=== PATIENT | female | born 1965 | race Caucasian/White ===

== ENCOUNTER 2016-10-31 16:52 | Inpatient (IN) ==
[2016-10-31 17:41] LABS: BASO% 0.3 % (0.0-0.8); EOS# 9.11 X1000 (0.0-0.7); HEMATOCRIT 42.2 % (37.0-47.0); HEMOGLOBIN 14.8 g/dL (12.0-16.0); IMM GRAN# 0.04 X1000 (0.0-0.04); IMM GRAN% 0.2 % (0.0-0.5); LYMPH# 3.03 X1000 (1.2-3.4); LYMPH% 15.3 % (20.5-51.1); MANUAL DIFF NEEDED? YES; MCH 30.3 PG (27-31); MCHC 35.1 g/dL (33-37); MCV 86.5 FL (81-99); MONO# 0.72 X1000 (0.11-0.59); MONO% 3.6 % (1.7-9.3); MPV 9.9 FL (7.4-10.4); NEUT% 34.6 % (42.2-75.2); PLT 255 X1000 (130-400); RBC 4.88 XMIL (4.2-5.4)
[2016-10-31 17:49] LABS: AGAP 11; ALKALINE PHOSPHATASE 110 U/L (32-104); AMYLASE 33 U/L (20-200); BUN 14 mg/dL (8-22); CALCIUM 9.1 mg/dL (8.8-10.2); CHLORIDE 101 mmol/L (98-107); COSMO 275; GOT 19 U/L (10-30); GPT 17 U/L (10-36); LIPASE 29 U/L (13-60); POTASSIUM 3.7 mmol/L (3.5-5.1); SODIUM 136 mmol/L (136-145); TCO2 24 mmol/L (25-35); TOTAL PROTEIN 6.8 g/dL (6.3-8.3)
[2016-10-31 17:56] LABS: BASO 1 % (0-1); EOS 49 % (1-10); LYMPHS 10 % (21-51); MONO 5 % (1-9)
[2016-10-31] MEDS ORDERED: NS 1,000 ML IV ONE ×2 (18:36→21:28)
[2016-10-31] MEDS ORDERED: ZOFRAN IV ONE (19:00)
[2016-10-31] MEDS ORDERED: DILAUDID IV ONE (19:01)
--- NOTE | 2016-10-31 19:04 | PROVIDER DOCUMENTATION ---
HPI-Abdominal Pain/GI Problem - General Chief Complaint: Abdominal Pain Stated Complaint: ABD PAIN Time Seen by Provider: 10/31/16 18:35 Source: patient, family Allergies/Adverse Reactions: Patient Allergies Allergy/AdvReac Type Severity Reaction Status Date / Time diphenhydramine HCl * Allergy ITCHING Verified 12/09/14 22:27 [From Benadryl] latex Allergy Unknown Verified 12/09/14 22:27 povidone-iodine Allergy Unknown Verified 12/09/14 22:27 [From Betadine] soap * [From Betadine] Allergy Unknown Verified 12/09/14 22:27 Sulfa (Sulfonamide Allergy SHORTNESS Verified 12/09/14 22:27 Antibiotics) OF BREATH Home Medications: Home Medication List Medication Instructions Recorded Confirmed Last Taken Type Cephalexin [Keflex] 500 mg PO Q6HR #28 capsule 12/22/14 Unknown Rx Tramadol [Ultram] 50 mg PO Q6H PRN PRN #30 tablet 12/22/14 Unknown Rx - History of Present Illness-ABD Nature of Presenting Problems: 50 year old WF presents with family. pt reports a 10 day history of diarrhea with abdominal distention for 10 days. Pt reports she was evaluated in the ED at [facility], placed in [facility] 7 days ago. The symptoms persisted, pt reports she was evaluated by her PMD 3 days ago and started on Flagyl. she reports the abdominal pain has become so severe she sought care again today. Pt reports over the last 2 days, she has developed nausea with vomiting, and has not had much to eat/drink. Pt denies blood in stool/emesis. Pt denies exposure to c-diff , recent abx use, recent visit to hospital prior to her own last week. Pt denies travel out of country, exposure to anybody with these symptoms. Pt reports she is dizzy, lightheaded with walking, standing and feels generally weak. Pt reports the abdominal pain is intermittent, sharp and feels like a "twisting" sensation. Abdominal Pain Onset Location: reports: generalized abdomen Pain Radiation: reports: no radiation Quality of Pain: reports: sharp, stabbing, other (twisting) Severity in ED: reports: mild, moderate Onset/Duration: reports: other (10 days ago) Timing: reports: still present, constant, getting worse Activities at Onset: reports: none Exposure to sick contacts?: No Modifying Factors: improves with: nothing. worse with: analgesics, antacids, breathing, cold/heat therapy, coughing, defecating, eating, exercise, immobilization, lying down, massage, movement, other medication, palpation, rest , urinating, vomiting Associated Symptoms: reports: diarrhea, dizziness, fatigue, loss of appetite, malaise, swelling/mass in abdomen, vomiting, weakness. denies: fever/chills, genitourinary problems, nausea, rash, seizure, shortness of breath, sensory/ motor loss, syncope, trouble walking Last BM: this evening Dark Stools Present?: reports: none noticed. denies: maroon, black, tarry, bright red blood Rectal Bleeding: reports: none. denies: bleeding without stool, bright red blood on paper, blood mixed with stool, blood streaks on stool, bloody diarrhea # of Diarrhea Episodes: 6 (in last 24 hours) Rectal Pain: reports: none. denies: known anal fissure(s), known hemorrhoids, fistula, abscess # of Vomiting Episodes: 2 (in last 24 hours) Emesis Description: reports: none, clear Bruising or Bleeding Gums?: No Similar Symptoms Previously?: No Recently seen or treated by another doctor?: Yes Review of Systems - Adult - REVIEW OF SYSTEMS - ADULT Constitutional: reports: see HPI, jenni. denies: chills, fever, weight gain, weight loss Eyes: reports: no symptoms reported. denies: discharge, blurred vision, double vision Ears, Nose, Mouth & Throat: reports: no symptoms reported. denies: ear discharge, ear pain, nose pain, loose teeth, throat pain, throat swelling Cardiovascular: reports: no symptoms reported. denies: chest pain, palpitations , syncope Respiratory: reports: no symptoms reported. denies: chronic cough, cough, shortness of breath, wheezing Gastrointestinal: reports: see HPI, abdominal pain, diarrhea, nausea, poor appetite, vomiting. denies: hematemesis, constipation, difficulty swallowing, frequent heartburn, rectal bleeding Genitourinary: reports: no symptoms reported. denies: dysuria, hematuria, urgency Musculoskeletal: reports: no symptoms reported. denies: bone pain, joint pain, joint swelling, neck pain Integumentary: reports: no symptoms reported. denies: hives, itching, rash, skin sores/ulcer Neurological: reports: see HPI. denies: ataxia, dizziness/vertigo, headache/ migraines, loss of balance, numbness, paresthesia, seizure, slurred speech, syncope, tremors Psychiatric: reports: no symptoms reported Endocrine: reports: no symptoms reported Hematologic/Lymphatic: reports: no symptoms reported Allergic/Immunologic: reports: no symptoms reported All Other Systems: Reviewed and Negative Past History - Adult - PAST MEDICAL HISTORY-ADULT Review of Records: reports: Old Records Reviewed, Nursing Assessment Review, Medications Reviewed, Social history reviewed & non-contributory. Major Childhood Illnesses: reports: denies history Cardiovascular: reports: denies history Respiratory: reports: denies history Gastrointestinal: reports: denies history Obstetrical/Gynecological: reports: denies history Genitourinary: reports: denies history Musculoskeletal: reports: denies history Neurological: reports: Multiple Sclerosis Endocrine/Immune: reports: thyroid disorder (during ) Other Conditions: reports: denies history - PRIOR SURGERIES/PROCEDURES Surgical/Procedure History: reports: cholecystectomy, hysterectomy, other ( wisdom teeth) - IMMUNIZATION STATUS Childhood Immunizations: See Nurse Assessment Flu Vaccine: See Nurse Assessment - FAMILY HISTORY Family History: reviewed, not pertinent - SOCIAL HISTORY Smoking: denies, non-smoker Substance Use: none/never Alcohol Use Frequency: never Physical Exam-General - PHYSICAL EXAM-ADULT Initial Vital Signs Reviewed: Yes - CONSTITUTIONAL General Appearance: appears well, alert, mild distress, moderate distress. negative: no apparent distress, severe distress, lethargic, slow to respond, obtunded, combative - EYES Eyes: pink conjunctivae. negative: conjuctival exudate, pale conjunctivae, sclera injected, scleral icterus, subconjunctival hemorrhage - HEAD, EARS, NOSE, MOUTH & THROAT HENMT: normocephalic/atraumatic, normal ENT inspection, TMs normal, pharynx normal. negative: moist mucous membranes (lips dry, tachy, stick mucous membranes), pharyngeal erythema, tonsillar exudate, TM abnormal, TM obscurred by cerumen, frontal tenderness, maxillary tenderness - NECK Neck: non-tender, full range of motion, supple, normal inspection. negative: C- spine tenderness, limited range of motion, tender lateral, tender midline - RESPIRATORY Respiratory: chest non-tender, lungs clear, normal breath sounds, no pleuratic chest pain, no respiratory distress, no accessory muscle use. negative: respiratory distress, decreased breath sounds, accessory muscle use, crackles, rales, rhonchi, stridor, wheezing - CARDIOVASCULAR Cardiovascular: normal peripheral pulses, regular rate, rhythm, no edema, no gallop, no JVD, no murmur. negative: bradycardia, tachycardia - CHEST (BREASTS) Chest/Breast: deferred - GASTROINTESTINAL (ABDOMEN) Abdominal Exam: normal bowel sounds, soft, no organomegaly, no pulsatile mass, abnormal bowel sounds (hyperactive BS), distended, tenderness (diffuse, non focal). negative: non tender, guarding, rigid, rebound, McBurney's point tenderness, Grijalva's sign, obturator sign, psoas, Rovsing's sign - LYMPHATIC Lymphatic: no adenopathy. negative: cervical node tenderness - MUSCULOSKELETAL Back Exam: normal inspection, no CVA tenderness, no vertebral tenderness. negative: CVA tenderness, decreased range of motion, swelling, vertebral tenderness Extremity: normal range of motion, non-tender, normal gait, normal inspection, no pedal edema, no calf tenderness, normal capillary refill, pelvis stable. negative: deformity, erythema, inflammation, joint effusion, slow capillary refill, swelling, tenderness Peripheral Pulses: radial (R): 3+, radial (L): 3+, dorsalis-pedis (R): 3+, dorsalis-pedis (L): 3+ - SKIN Integumentary: normal color, normal turgor, warm/dry. negative: jaundice, pallor, petechiae, purpura, rash, swelling, tenderness - NEUROLOGIC Neurologic: grossly normal, no motor/sensory deficits - PSYCHIATRIC Psych/Mental Status: normal mood/affect, normal thought content, normal thought process, oriented x 3 Progress - PLAN OF CARE/RESULTS Progress/Plan/Lab Results: Vital Signs - 8 hr 10/31/16 17:00 Temperature 98 F Pulse Rate 69 Respiratory Rate 18 Blood Pressure 161/82 O2 Sat by Pulse Oximetry 98 Laboratory Results - last 24 hr 10/31/16 10/31/16 17:20 17:20 WBC 19.81 H RBC 4.88 Hgb 14.8 Hct 42.2 MCV 86.5 MCH 30.3 MCHC 35.1 RDW Std Deviation 12.2 Plt Count 255 MPV 9.9 Immature Gran % (Auto) 0.2 Neut % (Auto) 34.6 L Lymph % (Auto) 15.3 L Giles % (Auto) 3.6 Eos % (Auto) 46.0 H Baso % (Auto) 0.3 Immature Gran # (Auto) 0.04 Neut # (Auto) 6.85 H Lymph # (Auto) 3.03 Giles # (Auto) 0.72 H Eos # (Auto) 9.11 H Baso # (Auto) 0.06 Segmented Neutrophils 35 L Lymphocytes 10 L Monocytes 5 Eosinophils 49 H Basophils 1 Pathologist Review Sodium 136 Potassium 3.7 Chloride 101 Carbon Dioxide 24 L Anion Gap 11 BUN 14 Creatinine 0.8 Estimated GFR/1.73 m2 > 60 BUN/Creatinine Ratio 18 Glucose 140 H Calculated Osmolality 275 Calcium 9.1 Total Bilirubin 0.20 AST 19 ALT 17 Alkaline Phosphatase 110 H Total Protein 6.8 Albumin 4.0 Globulin 3.0 Albumin/Globulin Ratio 1.0 Amylase 33 Lipase 29 Orders Category Date Time Status Orthostatic Vital Signs NOW Care 10/31/16 18:35 Active Saline Loc DIRECTED Care 10/31/16 17:10 Active NPO Diet 10/31/16 17:[address] ABD/PELVIS W/ IV CONT ONLY [CT] Stat Exams 10/31/16 19:02 Ordered AMYLASE [CHEM] Stat Lab 10/31/16 17:20 Completed C DIFF TOXIN PL Stat Lab 10/31/16 18:36 Ordered CBC WITH ELECTRONIC DIFF [HEME] Stat Lab 10/31/16 17:20 Completed COMPREHENSIVE METABOLIC PANEL [CHEM] Stat Lab 10/31/16 17:20 Completed LIPASE [CHEM] Stat Lab 10/31/16 17:20 Completed OCCULT BLOOD SCREEN STOOL PL Stat Lab 10/31/16 18:[address] W/POSS RFLX CULT [URINALYSIS] Stat Lab 10/31/16 18:40 Received WBC STOOL [STOOL] Stat Lab 10/31/16 18:36 Uncollected 0.9% Sodium Chloride Inj [Ns] 1,000 ml Med 10/31/16 18:36 Active IV 999 mls/hr Hydromorphone [Dilaudid] Med 10/31/16 19:01 Once 1 mg IV NOW ONE Ondansetron [Zofran] Med 10/31/16 19:00 Once 4 mg IV NOW ONE Vital Signs - 24 hr 10/31/16 17:00 Temperature 98 F Pulse Rate 69 Respiratory Rate 18 Blood Pressure 161/82 O2 Sat by Pulse Oximetry 98 Reviewed radiology, labs with Dr. Leger, agrees with plan of care and treatment/ admission. Laboratory Tests 10/31/16 10/31/16 10/31/16 17:20 17:20 18:40 WBC 19.81 H RBC 4.88 Hgb 14.8 Hct 42.2 MCV 86.5 MCH 30.3 MCHC 35.1 RDW Std Deviation 12.2 Plt Count 255 MPV 9.9 Immature Gran % (Auto) 0.2 Neut % (Auto) 34.6 L Lymph % (Auto) 15.3 L Giles % (Auto) 3.6 Eos % (Auto) 46.0 H Baso % (Auto) 0.3 Immature Gran # (Auto) 0.04 Neut # (Auto) 6.85 H Lymph # (Auto) 3.03 Giles # (Auto) 0.72 H Eos # (Auto) 9.11 H Baso # (Auto) 0.06 Segmented Neutrophils 35 L Lymphocytes 10 L Monocytes 5 Eosinophils 49 H Basophils 1 Pathologist Review Sodium 136 Potassium 3.7 Chloride 101 Carbon Dioxide 24 L Anion Gap 11 BUN 14 Creatinine 0.8 Estimated GFR/1.73 m2 > 60 BUN/Creatinine Ratio 18 Glucose 140 H Calculated Osmolality 275 Calcium 9.1 Total Bilirubin 0.20 AST 19 ALT 17 Alkaline Phosphatase 110 H Total Protein 6.8 Albumin 4.0 Globulin 3.0 Albumin/Globulin Ratio 1.0 Amylase 33 Lipase 29 Urine Source CLEAN CATCH Urine Color YELLOW Urine Clarity CLEAR Urine pH 5.0 Ur Specific [place] 1.020 Urine Protein NEGATIVE Urine Ketones NEGATIVE Urine Blood NEGATIVE Urine Nitrite NEGATIVE Urine Bilirubin NEGATIVE Urine Urobilinogen NORMAL Urine Microscopic RBC <10 Urine WBC TRACE A Urine Microscopic WBC <10 Ur Epithelial Cells <10 Urine Bacteria NEGATIVE Urine Glucose NEGATIVE Stool Occult Blood Stool C.difficile Toxin 10/31/16 10/31/16 18:40 19:00 WBC RBC Hgb Hct MCV MCH MCHC RDW Std Deviation Plt Count MPV Immature Gran % (Auto) Neut % (Auto) Lymph % (Auto) Giles % (Auto) Eos % (Auto) Baso % (Auto) Immature Gran # (Auto) Neut # (Auto) Lymph # (Auto) Giles # (Auto) Eos # (Auto) Baso # (Auto) Segmented Neutrophils Lymphocytes Monocytes Eosinophils Basophils Pathologist Review Sodium Potassium Chloride Carbon Dioxide Anion Gap BUN Creatinine Estimated GFR/1.73 m2 BUN/Creatinine Ratio Glucose Calculated Osmolality Calcium Total Bilirubin AST ALT Alkaline Phosphatase Total Protein Albumin Globulin Albumin/Globulin Ratio Amylase Lipase Urine Source Urine Color Urine Clarity Urine pH Ur Specific [place] Urine Protein Urine Ketones Urine Blood Urine Nitrite Urine Bilirubin Urine Urobilinogen Urine Microscopic RBC Urine WBC Urine Microscopic WBC Ur Epithelial Cells Urine Bacteria Urine Glucose Stool Occult Blood POSITIVE A Stool C.difficile Toxin NEGATIVE Result Diagrams: 10/31/16 17:20 10/31/16 17:20 - CT/MRI 1 CT Study: Abdomen, Pelvis Impression: Abnormal (possible enteritis. per Radha Puente) - CONSULTS/PCP/HOSPITALIST Notification #1 *Consult/PCP/Hospitalist*: Dr. Jones Time Discussed: 21:28 Consult Disposition: Admit Departure - Departure Time of Disposition Decision: 21:28 DIAGNOSIS: Colitis Nausea & vomiting Qualifiers: Vomiting type: unspecified Vomiting Intractability: non-intractable Qualified Code(s): R11.2 - Nausea with vomiting, unspecified Disposition: ADMITTED INPATIENT 09 Certified Medical Emergency: Emergent Condition: Stable Referrals and Follow-Ups: Emily Seymour MD [Primary Care Provider] - Attestation - Physician/ AYUSH Attestation Patient care was provided by Advanced Practice Provider:: Yes Advanced Practice Provider:: Chay Espinal Advanced Practice Provider documentation review:: The Mid-level provider documentation, treatment plan and medical decision making was reviewed by the physician who agrees with all treatment and medical decision making by the [facility].
[2016-10-31 19:16] LABS: BILIRUBIN URINE NEGATIVE (NEGATIVE); BLOOD URINE NEGATIVE (NEGATIVE); CLARITY CLEAR (CLEAR); COLOR YELLOW; GLUCOSE URINE NEGATIVE (NEGATIVE); LEUKOCYTES URINE TRACE (NEGATIVE); NITRITE URINE NEGATIVE (NEGATIVE); PROTEIN URINE NEGATIVE (NEGATIVE); UROBILINOGEN URINE NORMAL
[2016-10-31 19:40] LABS: URINE CULTURE PL NEEDED? YES; URINE EPITHELIAL CELLS <10 /HPF (<10); URINE RBC <10 /HPF (<10); URINE WBC <10 /HPF (<10)
[2016-10-31 19:41] LABS: URINE SOURCE CLEAN CATCH
[2016-10-31 20:09] LABS: OCCULT BLOOD 1 POSITIVE (NEGATIVE)
--- NOTE | 2016-10-31 20:13 | Diag Imaging Result Document ---
PROCEDURE NAME: CT ABD/PELVIS W/ IV CONT ONLY - 10/31/2016 CT ABDOMEN AND PELVIS WITH INTRAVENOUS CONTRAST. COMPARISON: Compared to 10/25/2016. FINDINGS: The gallbladder has been removed. I believe there is mild fatty infiltration of the liver. Normal pancreas, spleen, adrenal glands, and kidneys. No hydronephrosis. Normal aorta. There are fluid-filled loops of small bowel and additional fluid in the colon. The bowel loops are not dilated. Normal appendix. No abscess. The uterus has been removed. No pelvic mass. The urinary bladder is moderately distended and appears normal. IMPRESSION: 1. Cholecystectomy. 2. Possible enteritis. A preliminary report was given at 8:00 p.m.
[2016-10-31] MEDS ORDERED: LEVAQUIN 500 MG/D5W 500 MG/100 ML IVPB IV ONE (21:29)
[2016-10-31] MEDS ORDERED: FLAGYL 500 MG/NS 500 MG/100 ML IVPB IV ONE (21:30)
[2016-10-31] MEDS ORDERED: TYLENOL PO PRN (21:32)
[2016-10-31] MEDS: ZOFRAN IV PRN (23:29)
[2016-11-01] MEDS: DILAUDID IV PRN ×2 (00:15→22:45)
[2016-11-01] MEDS: FLAGYL 500 MG/NS 500 MG/100 ML IVPB IV SCH ×4 (04:00→22:46)
[2016-11-01] MEDS: ZOFRAN IV PRN (07:38)
[2016-11-01 08:37] LABS: BASO% 0.2 % (0.0-0.8); EOS# 4.45 X1000 (0.0-0.7); EOS% 34.9 % (0.0-10.0); HEMATOCRIT 37.2 % (37.0-47.0); HEMOGLOBIN 12.7 g/dL (12.0-16.0); IMM GRAN# 0.02 X1000 (0.0-0.04); IMM GRAN% 0.2 % (0.0-0.5); LYMPH# 3.23 X1000 (1.2-3.4); LYMPH% 25.3 % (20.5-51.1); MANUAL DIFF NEEDED? YES; MCHC 34.1 g/dL (33-37); MCV 87.7 FL (81-99); MONO# 0.74 X1000 (0.11-0.59); MONO% 5.8 % (1.7-9.3); MPV 9.7 FL (7.4-10.4); NEUT% 33.6 % (42.2-75.2); PLT 226 X1000 (130-400); RBC 4.24 XMIL (4.2-5.4)
[2016-11-01 08:56] LABS: AGAP 7; BUN 8 mg/dL (8-22); CALCIUM 8.1 mg/dL (8.8-10.2); CHLORIDE 110 mmol/L (98-107); COSMO 278; POTASSIUM 3.8 mmol/L (3.5-5.1); SODIUM 140 mmol/L (136-145); TCO2 23 mmol/L (25-35)
[2016-11-01 09:23] LABS: EOS 31 % (1-10); LYMPHS 26 % (21-51); MONO 6 % (1-9)
[2016-11-01] MEDS: SODIUM CHLORIDE 0.9% INJ PRN (09:59)
[2016-11-01] MEDS: PHENERGAN IV PRN ×2 (09:59→20:55)
--- NOTE | 2016-11-01 12:43 | HISTORY AND PHYSICAL ---
PRIMARY CARE PHYSICIAN: Emily Seymour MD CHIEF COMPLAINT: "I have had diarrhea for the past 10 days." HISTORY OF PRESENTING ILLNESS: This is a 50-year-old female who [facility] with complaints of a 10-day history of diarrhea. States that she had been seen by both her primary care and [facility] ER for treatment with no results. Her workup in the ER showed a white blood cell count of 19.81. A stool for occult blood was positive. Clostridium difficile toxin was negative. Abdomen and pelvic CT showed a possible enteritis so she was initially admitted to the medical floor at [facility] but will now be transferred to [facility] for GI consultation due to her heme-positive stool. PAST MEDICAL HISTORY: Multiple sclerosis. Hypothyroidism. PAST SURGICAL HISTORY: Cholecystectomy, partial hysterectomy, and rhinoplasty x2. FAMILY HISTORY: Her mother had IBS. SOCIAL HISTORY: She currently lives with her . Denies any tobacco, alcohol, or illicit drug use. ALLERGIES: Benadryl, latex, Betadine and sulfa. HOME MEDICATIONS: She takes Nature thyroid 65 mg p.o. q.a.m. LABORATORY DATA: Showed a white blood cell count of 19.81, hemoglobin 14.8, hematocrit 42.2. Platelets 255,000. Sodium of 136, potassium 3.7. Chloride 101, CO2 24, BUN of 14, creatinine 0.8, glucose of 140. Amylase of 33, lipase 29, urinalysis was negative. Stool for occult blood was positive. Stool for C. difficile toxin was negative. CT of the abdomen and pelvis showed a possible enteritis. REVIEW OF SYSTEMS: She denied any fever, chills, blurred vision, dizziness, chest pain, coughing, shortness of breath. She was positive for nausea, vomiting and diarrhea and lower abdominal pain. Denied any burning or hurting with urination. PHYSICAL EXAMINATION: VITAL SIGNS: On arrival, she had a temperature of 98 degrees, pulse 69, respirations 18, blood pressure 161/82, saturating 98% on room air. GENERAL: This is a 50-year-old female who is lying in the bed, and answers questions appropriately. HEENT: Normocephalic and atraumatic. Pupils are equal, round, reactive to light. Extraocular movements are intact. Oropharynx and nares are clear. NECK: Supple. LUNGS: Clear to auscultation bilaterally with equal lung expansion and chest wall movement. HEART: Regular rate and rhythm. No murmurs, rubs, or gallops. ABDOMEN: Soft with some mild distention more on the bloated side. Bowel sounds are active x4 quadrants. EXTREMITIES: There is no clubbing, cyanosis, or edema. NEUROLOGIC: The cranial nerves 2-12 are grossly intact. ASSESSMENT: 1. Enteritis. 2. Gastrointestinal bleed. 3. Leukocytosis. 4. Hemoccult-positive stool. 5. Nausea and vomiting, diarrhea. PLAN: She was initially admitted to [facility]. Placed on Flagyl 500 mg IV q.6, Levaquin 500 mg IV q.24. Phenergan 25 IV q.4 hours p.r.n. Dilaudid 0.5 mg IV q.4-6 hours p.r.n. Due to her being heme positive she will be transferred to [facility] for GI consultation. Placed on a clear liquid diet. Normal saline at 75 mL an hour. Recheck a CBC, CMP in the a.m. and she will be transferred to the hospitalist services at [facility]. Dictated by PEYTON Holcomb for Malik Berg MD cc: PEYTON Franklin MD
[2016-11-01] MEDS ORDERED: NS 1,000 ML IV SCH (14:47)
[2016-11-01] MEDS: NS 1,000 ML IV SCH (15:01)
[2016-11-01] MEDS: PROTONIX IV SCH (17:48)
[2016-11-01] MEDS: SODIUM CHLORIDE 0.9% INJ SCH (17:48)
[2016-11-01] MEDS: CULTURELLE PO SCH (20:42)
[2016-11-01] MEDS: LEVAQUIN 500 MG/D5W 500 MG/100 ML IVPB IV SCH (20:42)
[2016-11-02] MEDS: NS 1,000 ML IV SCH ×2 (00:59→18:28)
[2016-11-02] MEDS: PHENERGAN IV PRN ×4 (00:59→13:49)
[2016-11-02] MEDS: FLAGYL 500 MG/NS 500 MG/100 ML IVPB IV SCH ×5 (05:00→23:08)
[2016-11-02 05:56] LABS: HEMATOCRIT 36.2 % (37.0-47.0); HEMOGLOBIN 12.2 g/dL (12.0-16.0); MCH 30.3 PG (27-31); MCHC 33.7 g/dL (33-37); MCV 89.8 FL (81-99); MPV 9.4 FL (7.4-10.4); RBC 4.03 XMIL (4.2-5.4)
[2016-11-02] MEDS: DILAUDID IV PRN (06:06)
[2016-11-02 06:12] LABS: AGAP 8; BUN 6 mg/dL (8-22); CALCIUM 8.1 mg/dL (8.8-10.2); CHLORIDE 109 mmol/L (98-107); COSMO 280; POTASSIUM 3.8 mmol/L (3.5-5.1); SODIUM 142 mmol/L (136-145); TCO2 25 mmol/L (25-35)
--- NOTE | 2016-11-02 09:33 | CONSULTATION ---
DATE OF CONSULTATION: 11/01/2016 GASTROENTEROLOGY CONSULTATION: DICTATING PHYSICIAN: Dr. Kat. PRIMARY CARE DOCTOR: Dr. Emily Seymour. REASON FOR CONSULTATION: Abdominal pain, diarrhea, nausea, vomiting. HISTORY OF PRESENT ILLNESS: Ms. Jones is 50-year-old female who was in her normal state of health until about last Thursday, about 10 days ago, when she had a sudden onset incontinence and periumbilical pain. She describes her diarrhea has mucoid, starting about 10 days ago. At that time, she went to the ER at [facility] where she was given a cup for stool sample which she could not submit it at that time. She was told that she has a viral gastroenteritis and then discharged home. She felt better while being on liquids but she continued to have slimy mucoid diarrhea all that time over the last 10 days. Three days ago she ate a [employer] sandwich and she developed nausea immediately after eating and threw up the entire sandwich. She had soup, cream of potato soup yesterday which aggravated her abdominal pain, bloating, and diarrhea and nausea. She came to the ER at [facility] where she had a white count of 19.8, and stool for Hemoccult was positive. Her C. difficile toxin was negative. Abdominal pelvic CT was done which showed fluid filled loops of small bowel and additional fluid in the colon suggesting possible enteritis. The bowel loops are not dilated. Normal appendix, no abscess. The uterus has been removed. The gallbladder has been removed. There is mild fatty infiltration in the liver noted. The urinary bladder is moderately distended, appears normal. The patient was transferred to [facility] for further evaluation by Gastroenterology. Since being in the hospital she has received IV fluids and her white cell count has gone down to 12.75. Her appetite has gotten better and she is starving and she wants to eat. PAST MEDICAL HISTORY: 1. Multiple sclerosis. 2. Hypothyroidism. PAST SURGICAL HISTORY: 1. Cholecystectomy. 2. Partial hysterectomy. 3. Rhinoplasty x2. 4. Last colonoscopy more than 2 years ago at [facility] was normal. FAMILY HISTORY: Mother has IBS. SOCIAL HISTORY: She lives with her . She is . She denies any tobacco, alcohol, illicit drugs. ALLERGIES: Benadryl, latex, Betadine, and sulfa. MEDICATIONS AT HOME: Nature-Throid 65 mg p.o. q.a.m. REVIEW OF SYSTEMS: She denies any current fever, rigors, or chills. She denies any chest pain, shortness of breath, dyspnea at rest. Denies any genitourinary complaints, neurologic complaints. She has baseline history of multiple sclerosis which is currently stable. She complains of nausea and intermittent vomiting and diarrhea and then with abdominal pain going on for the last 10 days. She denies noticing any blood in the stools. MEDICATIONS IN THE HOSPITAL: Include Tylenol, Flagyl, Dilaudid, Culturelle, Levaquin, IV fluids 75 mL/hr, Protonix IV once daily, Nature-Throid once daily, Phenergan 25 mg IV every 4 hours as needed. DIET: She is on clear liquid diet. PHYSICAL EXAMINATION: Vital Signs: Temperature of 98.1 degrees, pulse rate 64 , respiratory rate 18, blood pressure 170/53, saturating 100% room air. Body weight of 138 pounds , BMI of 21 kg/m2. General Appearance: Moderately nourished, lying in bed, in no acute distress. HEENT: No pallor. No icterus. Pupils equal, react to light. Neck: Supple. Chest: Decreased. Heart: Has a regular rate and rhythm. No murmur or dullness. Abdomen: No rebound or guarding. Bowel sounds are present. No hepatosplenomegaly. Extremities: No cyanosis, clubbing, or edema. Neurologic: Alert, awake, oriented. DIAGNOSTIC DATA: Hemoglobin and hematocrit is 12.7 and 37.2, white count of 12.75, platelet count of 226,000, MCV of 87.7. Sodium 140, potassium 3.8, chloride 110, bicarbonate 29.7, BUN of 8, creatinine of 0.7, glucose of 97, calcium of 8.1, total bilirubin is 0.2, AST 19, ALT 17, alkaline phosphatase was 110, total protein 6.8, albumin of 4, amylase of 33, lipase of 29. Urinalysis trace white cells. Stool occult blood was positive. Stool C. difficile toxin was negative. Imaging: CT scan of the abdomen and pelvis as in current HPI. IMPRESSION: 1. Abdominal pain, along with mucoid diarrhea and intermittent nausea and vomiting over the last 10 days. Suspect viral gastroenteritis. 2. History of multiple sclerosis. 3. Leukocytosis which is improving with hydration. 4. Positive Hemoccult. RECOMMENDATIONS: 1. We will continue with IV fluids at 75 mL/hr. We will check the stool studies and check stool culture, ova and parasites, and Clostridium difficile toxin and Clostridium difficile antigen. The patient will be on clear liquid diet for now. We will keep her on Culturelle 1 capsule p.o. b.i.d. for 6 weeks. 2. If the stool studies are negative then we will discontinue her Levaquin and Flagyl. We will reduce the use of Phenergan as it can cause rebound nausea. 3. The patient will be on a bland diet for now and the patient's family is planning to bring Gatorade which she can start drinking at bedside. 4. Patient may need interval colonoscopy in 2-4 weeks after discharge once she has completely recovered. The above plan of care was discussed with the patient and family and all questions answered. cc: MD Emily Villarreal MD MTDD
[2016-11-02] MEDS: PATIENT'S OWN MED PO SCH (09:49)
[2016-11-02] MEDS: CULTURELLE PO SCH ×2 (09:49→21:47)
[2016-11-02] MEDS: PROTONIX IV SCH ×2 (13:49→16:02)
[2016-11-02] MEDS: SODIUM CHLORIDE 0.9% INJ PRN (13:49)
[2016-11-02] MEDS: SODIUM CHLORIDE 0.9% INJ SCH (13:49)
--- NOTE | 2016-11-02 16:08 | PROGRESS NOTE ---
DATE: 11/02/2016 SUBJECTIVE: The patient has abdominal pain, severe in her epigastrium and nausea. Diarrhea has improved overall. OBJECTIVE: Vital signs: Blood pressure 125/65, heart rate 70, respiratory rate 16, temperature degrees 97.2 degrees, 100% on room air. Cardiovascular: Regular rate and rhythm. Pulmonary: Bilateral breath sounds. Clear to auscultation. GI: Soft, nondistended. She does have pain and guarding in her epigastrium. Bowel sounds are positive. Extremities: No clubbing or cyanosis. Lymphatics: No peripheral edema. LABORATORY DATA: Chemistries are unremarkable. CBC: White count is down the 10.5. PROBLEM LIST: 1. Enteritis, colitis, presumed infectious. We will continue empiric antibiotics. She is on Levaquin and Flagyl; that will be day 2. GI is following. Stool studies have been ordered. So far everything is negative except for Hemoccult positive and a few white blood cells, but the stool culture, O P, C. Difficile are all negative. Defer to GI about if she is not clinically improved we may have to entertain endoscopy, but that will be per their recommendations. We will continue to follow very closely. Her CRP interestingly is not that elevated. 2. Disposition. Pending clinical course. cc: Hernan Kat MD
[2016-11-02] MEDS: ZOFRAN IV PRN ×2 (18:33→23:09)
--- NOTE | 2016-11-02 20:47 | PROGRESS NOTE ---
DATE: 11/02/2016 SUBJECTIVE: Patient currently resting in bed. She complains of nausea. She has not had any bowel movements today. She denies any vomiting. She is passing gas. She is tolerating liquids well. She denies any fevers, rigors, or chills. OBJECTIVE: Vital signs: Temperature 99.5 degrees, pulse rate of 72, respiratory rate of 16, blood pressure 126/61, saturating 100% on room air. General appearance: Moderately built, moderately nourished, lying in bed, in no acute distress. HEENT: No pallor. No icterus. Pupils equal, react to light. Neck: Supple. Abdomen: Soft. Mild discomfort. No rebound or guarding. Bowel sounds noted. Extremities: No cyanosis, clubbing, edema. Neurologic: She is alert, awake, oriented. LAB: Her hemoglobin and hematocrit is 12.2 and 36.2, white count 10.5, platelet count of 216,000, MCV of 89.8. Her sedimentation rate was 0, sodium 140, potassium 3.8, chloride 109, bicarb 25, anion gap of 8, BUN of 6, creatinine 0.7, glucose of 90, calcium is 8.1. CRP of 1.78. Amylase of 33, lipase 29. C. difficile toxin was negative. Stool occult blood was positive. Her stool studies showed C. difficile toxin and C. difficile antigen were negative. Ova and parasites and trichrome strain was negative. Stool culture preliminary, no enteric pathogens. Urine culture, no pathogenic growth. Stool for white cells was few. IMPRESSION AND PLAN: 1. Likely viral gastroenteritis. Will continue on probiotics and we can also hold her antibiotics if the final stool culture pathology is negative. We will advance to full liquid diet today. The patient will be need to be on full liquids for 3-4 days and then gradually advance as tolerated on discharge. 2. She has some reflux and she will continue on Prilosec at home for 2-4 weeks. 3. Her sedimentation rate and CRP are unremarkable thus lowering the chances of chronic inflammatory bowel disease. The inflammatory bowel disease panel was also sent and is currently pending. 4. Patient will follow up in the clinic in 4 weeks after discharge. The above plan was discussed with the patient. All questions were answered. cc: MD Hernan Norris MD Lindsay E. Smith, MD
[2016-11-02] MEDS: LEVAQUIN 500 MG/D5W 500 MG/100 ML IVPB IV SCH (21:47)
[2016-11-03] MEDS: FLAGYL 500 MG/NS 500 MG/100 ML IVPB IV SCH ×3 (03:15→15:06)
[2016-11-03] MEDS: NS 1,000 ML IV SCH ×3 (03:15→15:03)
[2016-11-03 05:49] LABS: HEMATOCRIT 36.7 % (37.0-47.0); HEMOGLOBIN 12.4 g/dL (12.0-16.0); MCH 30.3 PG (27-31); MCHC 33.8 g/dL (33-37); MCV 89.7 FL (81-99); MPV 9.6 FL (7.4-10.4); RBC 4.09 XMIL (4.2-5.4)
[2016-11-03 05:56] LABS: AGAP 12; BUN 4 mg/dL (8-22); CALCIUM 8.1 mg/dL (8.8-10.2); CHLORIDE 110 mmol/L (98-107); COSMO 284; POTASSIUM 3.9 mmol/L (3.5-5.1); SODIUM 144 mmol/L (136-145); TCO2 22 mmol/L (25-35)
[2016-11-03 07:57] VITALS: BP 131/75
[2016-11-03] MEDS: PATIENT'S OWN MED PO SCH (09:36)
[2016-11-03] MEDS: CULTURELLE PO SCH (09:36)
--- NOTE | 2016-11-03 13:33 | PROGRESS NOTE ---
DATE: 11/03/2016 SUBJECTIVE: The patient currently resting in bed. She had 4 loose bowel movements yesterday and today so far had only 1 loose bowel movement today. No blood noted in the stool. The stool is brownish-yellow in color. She denies any abdominal pain this morning. Her bloating is gotten better. She denies any nausea today. She is tolerating liquids well. She denies any fevers, rigors, or chills. OBJECTIVE: Vital Signs: Vital signs are around 98, pulse rate 67, respiratory rate 12, blood pressure 139/70, saturating 98% on room air. General Appearance: Moderately built, moderately nourished, lying in bed, in no acute distress. HEENT: No pallor. No icterus. Pupils equal, react to light. Neck: Supple. Abdomen: Soft, nontender, nondistended. Bowel sounds noted. No rebound. Extremities: No cyanosis, clubbing, or edema. Neurologic: She is alert, awake, and oriented. LABS: Hemoglobin and hematocrit is 12.4, 36.7. White count 9.9. Platelet count of 220,000. Sodium 141, potassium 3.9, chloride 110, bicarb 22, anion gap of 12. BUN of 4, creatinine 0.8, glucose of 97. Calcium 8.1. CRP is 1.78. Sedimentation rate is 0. Stool occult was positive. Stool clostridium difficile toxin was negative. Clostridium difficile toxin, clostridium difficile antigen, ova and parasites, stool culture, urine culture negative. Stool for white cells, few noted. IBD panel is currently pending. IMPRESSION AND PLAN: 1. Likely a viral gastroenteritis, as a CT scan showed evidence of fluid in the small bowel and colon suggesting diarrhea and antritis. She is feeling better clinically. We will continue to encourage to be on a full liquid diet for next 2-3 days and advance as tolerated. She will continue on probiotics Culturelle 1 capsule p.o. b.i.d. for 6 weeks. The patient will be on Levaquin and Flagyl for 5 more days. 2. The patient to call my office in a few weeks. If she continues to have symptoms at that time, we will decide if she needs any kind of colonoscopy. 3. Reflux disease. The patient will continue on Prilosec at home for 2-4 weeks. Avoid excessive tea, coffee, soda, tomatoes, onions, or spicy foods. The above plan was discussed with the patient and Dr. Kat. cc: MD Emily Norris MD
[2016-11-03] MEDS: SODIUM CHLORIDE 0.9% INJ SCH (15:06)
[2016-11-03] MEDS: PROTONIX IV SCH (15:06)
--- NOTE | 2016-11-04 13:48 | DISCHARGE SUMMARY ---
ADMISSION DATE: 10/31/2016 DISCHARGE DATE: 11/03/2016 INDICATIONS: Pelvis CT showed cholecystectomy, possible enteritis. DISCHARGE DIAGNOSES: 1. Viral gastroenteritis. CT showed evidence of fluid in the small bowel and colon suggestive of diarrhea and enteritis. Clinically the patient has improved. Continue to encourage a liquid diet for the next 2-3 days and advance as tolerated. Continue prophylaxis with Culturelle. The patient will be on Levaquin and Flagyl for 5 more days. Will follow up with Dr. Jenkins in a few weeks in his office. 2. Gastroesophageal reflux Gastroesophageal reflux disease. Continue on Prilosec at home for 2-4 weeks. Avoid excessive tea, coffee, soda, tomatoes, onions or spicy foods. HOSPITAL COURSE: Briefly, Ms. Jones is a 50-year-old female, who presented to [facility] with a 10-day history of diarrhea. States that she has been seen by the primary care in [facility] ER for treatment with no results. Workup in the ED was normal with a white count of 19. Stool for occult blood was positive. C. difficile toxin was negative. Abdominal and pelvis CT showed possible enteritis. She was initially admitted to [facility], but was transferred to [facility] for GI consult secondary to heme-positive stools. She was started on Flagyl and Levaquin, as well as Phenergan for nausea and Dilaudid for pain. Hemoglobin and hematocrit was monitored closely. She was continued on IV antibiotics. She was kept on a clear liquid diet and started on Culturelle. The patient has been tolerating her full liquid diet. She had 4 loose bowel movements yesterday and only one loose bowel movement today. No blood in the stools that were a yellow brownish color. Denied any abdominal pain. Denied any nausea, again tolerating her diet. No fevers. She has not had any chills. She felt like her abdomen distention has gone down greatly. She is being discharged home today at the recommendation with Dr. Jenkins, likely viral gastroenteritis. Clinically, the patient is feeling better. She will continue a full liquid diet for the next 2-3 days, as well as continue on Culturelle for 6 weeks and Levaquin and Flagyl for 5 more days. Will follow up with Dr. Jenkins in his office in a few weeks. She is still having symptoms. They will decide if she needs a colonoscopy. In reference to her GERD, she will continue on Prilosec for 2-4 weeks. She will avoid excessive tea, coffee, soda, tomatoes, onions or spicy food. VITAL SIGNS AT TIME OF HER DISCHARGE: Temperature is 98 degrees, heart rate 76, respirations 12, blood pressure 131/75, O2 is 99% on room air. DISCHARGE DIET: Full liquid for the next 2-3 days and advance as tolerated. DISCHARGE MEDICINES: 1. Culturelle 1 each p.o. b.i.d. 2. Levaquin 500 mg p.o. daily. 3. Flagyl 500 mg p.o. t.i.d. for 5 days. 4. Prilosec 40 mg p.o. daily for the next 2-4 weeks. 5. Nature thyroid 65 mg p.o. q.a.m. FOLLOW-UP: Patient is being discharged home. She will follow up with her primary care physician, Dr. Emily Seymour, in 7-10 days, as well as Dr. Jenkins. Patient can return to the ED for any worsening symptoms. TIME SPENT ON DISCHARGE: 30 minutes.. Dictated by PEYTON Cardenas for Hernan Kat MD cc: Hernan Kat MD
== END 2016-11-03 17:41 | disposition home or self-care (01) ==
LOC: P.ED 16:52 → P.MEDSURG 22:17 → SUATTDRO 22:17 → P.MEDSURG 22:40 → 4N 11-01 14:46
PROVIDERS: ATTEND Internal Medicine